=== PATIENT | female | born 1985 | race Caucasian/White ===

== ENCOUNTER 2019-08-26 04:38 | Emergency (ER) | payer BC ==
[2019-08-26] MEDS ORDERED: Sodium Chloride 0.9% 10 ML Syringe FLUSH PRN (04:57)
[2019-08-26] MEDS ORDERED: HYDROmorphone 1 MG/ML Syringe IVPUSH ONE (04:58)
[2019-08-26] MEDS ORDERED: Ketorolac 15 MG/ML SDV IVPUSH ONE (05:00)
[2019-08-26] MEDS ORDERED: Sodium Chloride 0.9% 1,000 ML IV ONE (05:00)
[2019-08-26] MEDS ORDERED: Ondansetron 4 MG/2 ML SDV IVPUSH ONE (05:00)
[2019-08-26 05:58] LABS: CHLORIDE,CL 108 mmol/L (98-107); SODIUM,NA 141 mmol/L (136-145)
[2019-08-26 06:01] LABS: ANION GAP 17.5 mmol/L (10-20)
[2019-08-26] MEDS ORDERED: Take Home: Acetaminophen/HYDROcodone 325-10 MG, 5 Tab Pack PO ONE (06:16)
--- NOTE | 2019-08-26 06:34 | EDM.PDOC ---
ED HPI GENERAL MEDICAL PROBLEM - General Chief Complaint: Abdominal Pain Stated Complaint: Abdominal Pain Time Seen by Provider: 08/26/19 04:55 Source of Information: Reports: Patient History Limitations: Reports: No Limitations - History of Present Illness INITIAL COMMENTS - FREE TEXT/NARRATIVE: Pt. presents to ER with complaints of RUQ abdominal pain. Pt. states that the pain started around midnight. She states that she did eat some fatty food a few hours before the pain started. She states that she had a similar episode about 1 -2 weeks ago. The pain resolved on its own. She was seen at the [facility] for this. She has not had any follow-up/imaging?workup for this. Pt. Has no PCP. She states that she plans on seeing Dr. Piña at [facility] to establish care. Pt. complains of mild nausea but no vomiting. She states that her stools have been looser and ocean transportation intermediary in color. Denies any jaundice. No fever or chills. No dark colored stool. No chest pain or shortness of breath. Onset: Today Location: Reports: Abdomen Quality: Reports: Sharp Severity: Severe RUQ Pain Score (Numeric/FACES): 4 - Related Data Allergies Allergy/AdvReac Type Severity Reaction Status Date / Time No Known Allergies Allergy Verified 08/26/19 05:20 Home Meds: Home Meds Levonorgestrel-Ethin Estradiol [Chateal Eq-28 Tablet] 1 tab PO DAILY 08/26/19 [ History] Past Medical History - Past Health History Medical/Surgical History: Denies Medical/Surgical History Social & Family History - Tobacco Use Smoking Status *Q: Never Smoker - Recreational Drug Use Recreational Drug Use: No ED ROS GENERAL - Review of Systems Review Of Systems: See Below Constitutional: Reports: No Symptoms HEENT: Reports: No Symptoms Respiratory: Reports: No Symptoms Cardiovascular: Reports: No Symptoms Endocrine: Reports: No Symptoms GI/Abdominal: Reports: Abdominal Pain, Nausea. Denies: Black Stool, Bloody Stool, Diarrhea, Difficulty Swallowing, Distension, Hematemesis, Hematochezia, Melena, Vomiting : Reports: No Symptoms Musculoskeletal: Reports: No Symptoms Skin: Reports: No Symptoms Neurological: Reports: No Symptoms Psychiatric: Reports: No Symptoms Hematologic/Lymphatic: Reports: No Symptoms Immunologic: Reports: No Symptoms ED EXAM, GENERAL - Physical Exam Exam: See Below Exam Limited By: No Limitations General Appearance: Alert, WD/WN, No Apparent Distress Neck: Normal Inspection, Supple, Non-Tender, Full Range of Motion Respiratory/Chest: No Respiratory Distress, No Accessory Muscle Use Cardiovascular: Normal Peripheral Pulses, Regular Rate, Rhythm Peripheral Pulses: 4+: Radial (L) GI/Abdominal: Soft, No Organomegaly, No Distention, No Mass, Guarding (Pain on palp of RUQ. No mass.), Tender. No: Hepatomegaly (Female) Exam: Deferred Rectal (Female) Exam: Deferred Back Exam: Normal Inspection, Full Range of Motion Extremities: Normal Inspection, Normal Range of Motion, Non-Tender, No Pedal Edema, Normal Capillary Refill Neurological: Alert, Oriented, CN II-XII Intact, Normal Cognition, Normal Gait, Normal Reflexes, No Motor/Sensory Deficits Psychiatric: Normal Affect, Normal Mood Skin Exam: Warm, Dry, Intact, Normal Color, No Rash Course - Vital Signs Last Recorded V/S: Last Vital Signs Temp 36.4 C 08/26/19 05:23 Pulse 74 08/26/19 05:23 Resp 16 08/26/19 05:23 BP 134/62 08/26/19 05:23 Pulse Ox 100 08/26/19 05:23 - Orders/Labs/Meds Orders: Active Orders 24 hr Category Date Time Status Sodium Chloride 0.9% [Saline Flush] Med 08/26/19 04:57 Active 10 ml FLUSH ASDIRECTED PRN Peripheral IV Insertion Adult [OM.PC] Routine Oth 08/26/19 04:58 Ordered Medication Orders Sodium Chloride (Saline Flush) 10 ml FLUSH ASDIRECTED PRN PRN Reason: Keep Vein Open Labs: Laboratory Tests 08/26/19 08/26/19 08/26/19 Range/Units 04:50 05:20 05:20 WBC 7.7 (4.0-10.0) x10^3/uL RBC 4.17 (4.00-5.50) x10^6/uL Hgb 11.7 L (12.0-16.0) g/dL Hct 34.4 (33.0-47.0) % MCV 82.5 (78.0-93.0) fL MCH 28.1 (26.0-32.0) pg MCHC 34.0 (32.0-36.0) g/dL RDW Coeff of Almaz 13.4 (10.0-15.0) % Plt Count 193 (130-400) x10^3/uL Neut % (Auto) 66.7 (50.0-80.0) % Lymph % (Auto) 23.9 L (25.0-50.0) % Baldwin % (Auto) 6.8 (2.0-11.0) % Eos % (Auto) 2.2 (0.0-4.0) % Baso % (Auto) 0.4 (0.2-1.2) % PT 10.6 (10.0-12.8) SEC INR 0.9 L (2.0-3.5) Sodium 141 (136-145) mmol/L Potassium 3.5 (3.5-5.1) mmol/L Chloride 108 H (98-107) mmol/L Carbon Dioxide 19 L (21-32) mmol/L Anion Gap 17.5 (10-20) mmol/L BUN 10 (7-18) mg/dL Creatinine 1.0 (0.55-1.02) mg/dL Est Cr Clr Drug Dosing 78.54 mL/min Estimated GFR (MDRD) > 60 Glucose 96 (74-106) mg/dL Calcium 9.2 (8.5-10.1) mg/dL Corrected Calcium 9.60 (8.5-10.1) mg/dL Magnesium 1.5 L (1.8-2.4) mg/dL Total Bilirubin 0.4 (0.2-1.0) mg/dL AST 36 (15-37) U/L ALT 29 (14-59) U/L Alkaline Phosphatase 49 (46-116) U/L C-Reactive Protein 0.3 (<=0.9) mg/dL Total Protein 6.6 (6.4-8.2) g/dL Albumin 3.5 (3.4-5.0) g/dL Globulin 3.1 Albumin/Globulin Ratio 1.13 Amylase 57 (25-115) U/L Lipase 247 (73-393) U/L Meds: Medications Generic Name Dose Route Start Last Admin Trade Name Freq PRN Reason Stop Dose Admin Sodium Chloride 10 ml 08/26/19 04:57 Saline Flush FLUSH ASDIRECTED PRN Keep Vein Open Discontinued Medications Generic Name Dose Route Start Last Admin Trade Name Altagracia PRN Reason Stop Dose Admin Hydrocodone Bitart/Acetaminophen 1 packet 08/26/19 06:16 08/26/19 06:23 Take Home: Acetaminophen/Hydrocodone 325-10mg PO 08/26/19 06:17 1 packet ONETIME ONE Administration Hydromorphone HCl 1 mg 08/26/19 04:58 08/26/19 05:07 Dilaudid IVPUSH 08/26/19 04:59 1 mg ONETIME ONE Administration Sodium Chloride 1,000 mls @ 1,000 mls/hr 08/26/19 05:00 08/26/19 05:03 Normal Saline IV 08/26/19 05:59 1,000 mls/hr .BOLUS ONE Administration Ketorolac Tromethamine 15 mg 08/26/19 05:00 08/26/19 05:12 Toradol IVPUSH 08/26/19 05:01 15 mg ONETIME ONE Administration Ondansetron HCl 4 mg 08/26/19 05:00 08/26/19 05:11 Zofran IVPUSH 08/26/19 05:01 4 mg ONETIME ONE Administration Departure - Departure Time of Disposition: 06:35 Disposition: Home, Self-Care 01 Clinical Impression: RUQ pain - Discharge Information Instructions: Cholelithiasis, [id number], Gallbladder Eating Plan Referrals: Chelle Piña MD [Primary Care Provider] - Forms: ED Department Discharge Additional Instructions: Avoid fatty foods, such as milk, cheese, ice cream, cream, butter, meat, and pizza. I have enclosed a comprehensive list of foods to avoid. If you are having pain, try taking ibuprofen 200mg (3 tabs every 6 hours) for pain. If this does not help Burson 10/325mg 1 tab every 6 hours as needed for pain Radiology will be contacting you to schedule a time for ultrasound. I am having the results forwarded to Dr. Piña since you plan on establishing with her. Return to ER if you have unrelenting pain, fever, chills, are unable to hold down fluids, or skin changes/discoloration. Sepsis Event Note - Evaluation Sepsis Screening Result: No Definite Risk - Focused Exam Vital Signs: Vital Signs Temp Pulse Resp BP Pulse Ox 08/26/19 05:23 36.4 C 74 16 134/62 100 Date Exam was Performed: 08/26/19 Time Exam was Performed: 06:29 - Problem List Review Problem List Initiated/Reviewed/Updated: Yes - My Orders Last 24 Hours: My Active Orders 08/26/19 04:57 Sodium Chloride 0.9% [Saline Flush] 10 ml FLUSH ASDIRECTED PRN 08/26/19 04:58 Peripheral IV Insertion Adult [OM.PC] Routine - Assessment/Plan Last 24 Hours: My Active Orders 08/26/19 04:57 Sodium Chloride 0.9% [Saline Flush] 10 ml FLUSH ASDIRECTED PRN 08/26/19 04:58 Peripheral IV Insertion Adult [OM.PC] Routine Plan: Avoid fatty foods, such as milk, cheese, ice cream, cream, butter, meat, and pizza. I have enclosed a comprehensive list of foods to avoid. If you are having pain, try taking ibuprofen 200mg (3 tabs every 6 hours) for pain. If this does not help Burson 10/325mg 1 tab every 6 hours as needed for pain Radiology will be contacting you to schedule a time for ultrasound. I am having the results forwarded to Dr. Piña since you plan on establishing with her. Return to ER if you have unrelenting pain, fever, chills, are unable to hold down fluids, or skin changes/discoloration.
== END 2019-08-26 06:31 | disposition home or self-care (01) ==
LOC: SUPCPDRO 04:38 → VM.ED 04:38
DX: R10.11 Right upper quadrant pain (principal)
CPT/HCPCS: 36415; 80053; 82150; 83690; 83735; 85025; 85610; 86140; 96361; 96374; 96375; 99284; A9270; J1170; J1885; J2405; J7030